=== PATIENT | female | born 1950 | race Caucasian/White ===

== ENCOUNTER → 2019-05-17 07:53 | Outpatient (CLI) | payer MEDICARE, SELFPAY ==
--- NOTE | 2019-05-17 07:57 | RAD_ITS ---
STUDY: AIR-CONTRAST UPPER GI SERIES. REASON FOR EXAM: Female, 68 years old. ABDOMEN PAIN, BOWEL MOVEMENTS EVERY OTHER DAY. FEELS FOOD and quot;LAYS'' IN STOMACH. GALLBLADDER REMOVED IN 2017. FLUOROSCOPY TIME (if supplied): ( 30 seconds ) minutes/seconds. 17 images were obtained. TECHNIQUE: The patient ingested barium. Multiple images of the esophagus, stomach and duodenum were obtained. COMPARISON: None. FINDINGS: The esophagus is unremarkable. There is no evidence of mass lesion. No evidence of a gastroesophageal reflux. The stomach and duodenum are unremarkable. There is no evidence of ulceration. No mass lesion is present. RAD/Upper GI Series Only IMPRESSION: Unremarkable air contrast upper GI series. Electronically Signed: Usman Peck, at 14:12 EST , Service support ,
== END ==
PROVIDERS: PCP Registered Nurse; Referring Provider Nurse Practitioner Adult Health; Visit Provider Nurse Practitioner Adult Health
DX: R10.10 Upper abdominal pain, unspecified (principal)
CPT/HCPCS: 74246

== ENCOUNTER → 2019-07-03 | Outpatient (CLI) | payer MEDICARE, SELFPAY ==
--- NOTE | 2019-07-03 | ASPS_PTH ---
PATIENT: JAJA DESAI LOC: [facility] U#:[id number] AGE/SX: 68/F ROOM: RE07/03/[address]: Dr. Sunil Zepeda MD : 1950 BED: DIS: 07/03/2019 SPEC #: [id number] RECD: 07/03/19 16:42 STATUS: AMOL MORAIMA #: [id number] JUSTIN: 07/03/19 00:[address]: Sunil Zepeda DEPT: CYTOLOGY RECD BY: Ivan Pepe ENTERED: 07/04/19 07:33 SP TYPE: ASPIRATION OTHR DR: Ivette Lees, AUTOMATIC TOE LASTER-C Tissues: Thyroid gland, NOS Procedures: Special Stain Group II Cytology Other HEADER OPERATION: Right thyroid fine needle aspiration x2 PRE-OP DIAGNOSIS: Right thyroid nodule TISSUE SUBMITTED: Right thyroid slides x6 DIAGNOSIS CYTOLOGY Fine needle aspiration, right thyroid nodule (smears): Adequate for evaluation. Negative, consistent with benign follicular/colloid nodule. AM:thuan 07/04/19 CYTOLOGY STUDY Slides are reviewed. CYTOLOGY GROSS Received are six smears labeled with the patient's name and designated per the requisition as right thyroid. Submitted for staining. / thuan 07/04/19 TC:5 CPT: 52244 ADDENDUM ADDENDUM ADDENDUM ADDENDUM ADDENDUM ADDENDUM ADDENDUM ADDENDUM ADDENDUM ADDENDUM ADDENDUM 10/21/2019 10:31 ADDENDUM 10/21/2019 10:31 ADDENDUM 10/21/2019 10:31 ADDENDUM 10/21/2019 10:31 ADDENDUM 10/21/2019 10:31 This addendum is added to incorporate an outside pathology consultation report. The case was examined at [facility] (#[id number]) and the following diagnosis was rendered. Thyroid nodule, right, fine needle aspiration: Benign. Consistent with colloid nodule. Please see complete above mentioned consultation report in EMR
[2019-07-03 14:02] VITALS: BMI 29.5
== END | disposition home or self-care (01) ==
LOC: LABSPEC 16:51
PROVIDERS: PCP Registered Nurse; Referring Provider Surgery; Visit Provider Surgery
DX: E04.1 Nontoxic single thyroid nodule (principal)
CPT/HCPCS: 88161; 88313

== ENCOUNTER 2020-03-24 15:41 | Emergency (ER) | payer MEDICARE, SELFPAY ==
[2019-07-03 14:02] VITALS: BMI 29.5
[2020-03-24 15:42] VITALS: BP 151/75; PULSE 69; RESP 16; TEMP 35.7; O2SAT 99; BMI 29.5
--- NOTE | 2020-03-24 16:35 | ED.VIS.GEN ---
History of Present Illness Chief Complaint: Fall Narrative: Patient presents with head injury. She sustained a mechanical fall about 24 hours ago in her garage. She injured left side of her face. No loss of consciousness no vision changes, there is no neck pain or stiffness she denies any other injury including extremity injury other than slight knee contusion but she is able to ambulate and has minimal pain over her right knee. Past Medical History - Allergies and Home Meds Allergies/Adverse Reactions: Allergies ragweed pollen Allergy (Severe, Verified 03/24/20 15:42) anaphylaxis lisinopril Allergy (Intermediate, Verified 03/24/20 15:42) cough Sulfa (Sulfonamide Antibiotics) Allergy (Intermediate, Verified 03/24/20 15:42) rash/itching zinc Allergy (Verified 03/24/20 15:42) PT UNSURE OF REACTION Primary Care Physician: Ivette Lees GEOCHEMISTRY TEACHER, GEOCHEMISTRY TEACHER-C [Primary Care Provider] - Past Medical History: None - Hypertension, otherwise normal Smoking Status: Former smoker Review of Systems All systems negative except as indicated General: Denies: Chills, Fever Eyes: Denies: Visual changes - bilaterally Cardiovascular: Denies: Chest pain, Palpitations Respiratory: Denies: Dyspnea Gastrointestinal: Denies: Abdominal pain Musculoskeletal: Reports: Extremity Pain. Denies: Myalgias Skin: Reports: - - Left periorbital contusion. Denies: Rash Neurological: Reports: Headache. Denies: Weakness, Parasthesia, Numbness Hematologic: Denies: Easy bruising, Easy bleeding Allergy: Denies: Swelling of the mouth, Swelling of the tongue Physical Exam Vital Signs/Narrative: Vital Signs Temp Pulse Resp BP Pulse Ox 03/24/20 15:42 96.2 F L 69 16 151/75 H 99 General: Well nourished, Well developed Head: - - There is left supraorbital and infraorbital contusion the eye is open and she can move the eye in all directions without any pain. Eyes: Perrl, EOMI. Negative for: Pale conjunctiva ENT: Moist mucous membranes, - - no Other facial injury Cardiovascular: Regular rate, Regular rhythm Respiratory: No distress, CTA bilaterally, Chest nontender Abdomen: Soft, Nontender Back: Nontender, Normal Inspection. Negative for: Spinal tenderness Extremities: Nontender, No edema, - - Minimal tenderness for the right knee but able to move in all directions without any pain Skin: Normal color Neurological: Alert, Oriented x3, Normal Strength, Normal Sensation Psychological: Normal affect Diagnostic/Tx/Re-eval - Medical Decision Making Has a normal exam, there is no loss of consciousness, this happened about [address] is not warranted I will discharge with reassurance ED Disposition - Plan for ED Patient: Disposition: Home or Assisted Living Diagnosis: Concussion without loss of consciousness Instructions: ED Facial Contusion, ED Mechanical Fall Referrals: Ivette Lees NP, GEOCHEMISTRY TEACHER-C [Primary Care Provider] - 3-5 Days
== END 2020-03-24 17:02 | disposition home or self-care (01) ==
LOC: ED 16:54
PROVIDERS: Emergency Provider Emergency Medicine; PCP Registered Nurse
DX: S06.0X0A Concussion without loss of consciousness, initial encounter (principal); S80.01XA Contusion of right knee, initial encounter; W19.XXXA Unspecified fall, initial encounter; Y93.9 Activity, unspecified; Y92.9 Unspecified place or not applicable; I10 Essential (primary) hypertension; Z79.899 Other long term (current) drug therapy; Z87.891 Personal history of nicotine dependence
CPT/HCPCS: 99282

== ENCOUNTER → 2020-06-16 07:53 | Outpatient (CLI) | payer MEDICARE, SELFPAY ==
--- NOTE | 2020-06-16 07:55 | US_ITS ---
STUDY: THYROID ULTRASOUND REASON FOR EXAM: Female, 69 years old. Multiple thyroid nodules TECHNIQUE: Ultrasound evaluation of the thyroid was performed with real-time and static salgado-scale imaging. COMPARISON: None. FINDINGS: RIGHT LOBE: The right lobe of the thyroid gland measures 4.9 cm x 1.7 cm x 1.5 cm. There is a heterogeneous echotexture. There are 4 hypoechoic solid nodules in the right lobe of the thyroid. The largest is in the midpole and measures 1.2 cm x 0.7 cm by 0.6 cm. Intra nodular flow is seen. Biopsy is recommended. LEFT LOBE: The left lobe of the thyroid gland measures 4.4 cm x 1.3 cm x 0.8 cm. There is a heterogeneous echotexture. Multiple small hypoechoic nodules are seen. The largest is in the lower pole and is a solid nodule measuring 0.9 cm x 0.5 cm x 0.4 cm. ISTHMUS: The isthmus measures 2 mm. The regional lymph nodes are normal. US/Thyroid IMPRESSION: Heterogeneous appearance of the thyroid echotexture with the nodules in both lobes. A dominant solid nodule is seen in the right lobe of the thyroid measuring 1.2 cm x 0.7 cm x 0.6 cm. Biopsy is recommended. Electronically Signed: Usman Peck MD at 11:13 EST , Service support ,
== END ==
PROVIDERS: PCP Registered Nurse; Referring Provider Surgery; Visit Provider Surgery
DX: E04.2 Nontoxic multinodular goiter (principal); E21.3 Hyperparathyroidism, unspecified; E83.52 Hypercalcemia
CPT/HCPCS: 76536

== ENCOUNTER 2020-10-11 08:25 | Emergency (ER) | payer MEDICARE, SELFPAY ==
[2020-10-11 08:26] VITALS: BP 165/76; PULSE 90; RESP 16; TEMP 36.1; O2SAT 98; BMI 31.5
--- NOTE | 2020-10-11 08:48 | EKG12_ITS ---
Test Reason : LEFT ARM PAIN Blood Pressure : / mmHG Vent. Rate : 086 BPM Atrial Rate : 086 BPM P-R Int : 190 ms QRS Dur : 078 ms QT Int : 394 ms P-R-T Axes : 041 013 042 degrees QTc Int : 471 ms Normal sinus rhythm Normal ECG Confirmed by CESARIO YANEZ, ELOISE ([id number]), news videotape editor SHARON COSTELLO ([id number]) on 10/13/2020 8:59:50 AM Referred By: ANA CRISTINA Confirmed By:ELOISE NASSAR MD
--- NOTE | 2020-10-11 08:49 | EX.ED.UPPERE ---
HPI History of Present Illness Chief Complaint: Upper Extremity Injury Detail of Chief Complaint: Patient with left arm pain for about 2 months Informant: patient Onset/Context/Timing Current Severity: 11/24 Narrative Narrative: Patient presents with left arm pain x2 months. Patient denies any injury. Patient states that she saw a massage therapist recently for this and has not helped her pain. Patient states that at times she feels some popping in her shoulder and it hurts to move it. She has an appointment scheduled with orthopedics on November 09 but in think she could wait that long. Patient denies any chest pain or shortness of breath. She denies any fevers. [facility] Medical History (Updated 10/11/20 @ 10:[address] Iveth Pérez, DO) Acid reflux Arthritis Diabetes Hemorrhoids Hypercalcemia Hyperlipidemia Hyperparathyroidism Hypertension Lichen sclerosus Multiple thyroid nodules Vitamin D deficiency Home Medications acetaminophen 500 mg tablet 500 mg PO Q6H PRN 05/24/19 [History Last Taken Unknown] aluminum-mag hydroxide-simethicone 200 mg-200 mg-20 mg/5 mL oral susp 10 ml PO Q6H PRN 05/24/19 [History Last Taken Unknown] atorvastatin 10 mg tablet 10 mg PO DAILY 05/24/19 [History Last Taken Unknown] calcium carbonate 600 mg calcium (1,500 mg) tablet 600 mg PO BID 05/24/19 [History Last Taken Unknown] clobetasol 0.05 % topical cream 1 applic TOPICAL .prn g 05/24/19 [History Last Taken Unknown] furosemide 40 mg tablet 40 mg PO DAILY 05/24/19 [History Last Taken Unknown] ibuprofen 600 mg tablet 600 mg PO Q6H PRN 05/24/19 [History Last Taken Unknown] metformin 500 mg tablet 500 mg PO BID 05/24/19 [History Last Taken Unknown] omeprazole 20 mg capsule,delayed release 20 mg PO .prn cap 05/24/19 [History Last Taken Unknown] verapamil 180 mg 24 hr capsule,extended release 180 mg PO DAILY 05/24/19 [History Last Taken Unknown] hydrocodone-acetaminophen 1 tab PO Q4H PRN 3 Days #14 tab 10/11/20 [Rx Last Taken Unknown] Allergy/AdvReac Type Severity Reaction Status Date / Time ragweed pollen Allergy Severe anaphylaxis Verified 10/11/20 08:29 lisinopril Allergy Intermediate cough Verified 10/11/20 08:29 Sulfa (Sulfonamide Allergy Intermediate rash/itchin Verified 10/11/20 08:29 Antibiotics) g zinc Allergy PT UNSURE Verified 10/11/20 08:29 OF REACTION Family History Mother Asthma Cancer lung cancer Diabetes Hypertension Sister Glioblastoma Diabetes Kidney disease Brother Heart disease Father Heart disease Hypertension Surgical History History of bilateral breast reduction surgery History of colonoscopy (~2018) History of hysterectomy History of laparoscopic cholecystectomy Status post biopsy of thyroid gland (~06/2019) Social History Smoking Status: Former smoker alcohol intake: never substance use type: does not use ROS ROS ED Constitutional Constitutional ED: Reports systems reviewed and no addt'l complaints, except as documented; Denies body ache(s), change in weight or chills Eyes Eyes: Denies acute decrease in peripheral vision, change in vision, double vision or loss of vision ENT ENT ED: Reports none; Denies ear pain, lip swelling, loss taste/smell, neck pain, otalgia or sore throat Cardiovascular Cardiovascular: Reports none; Denies abdominal pain, chest pain with activity, leg edema, lightheadedness, palpitations, rapid heart rate or syncope Respiratory/Chest Respiratory/Chest: Reports none; Denies change in mental status, dry cough, dyspnea, hemoptysis, shortness of breath at rest or shortness of breath with exertion Gastrointestinal Gastrointestinal: Reports none; Denies abdominal pain, change in stool character, diarrhea, hematemesis, hematochezia, melena, rectal bleeding or vomiting Genitourinary Genitourinary ED: Reports none; Denies abdominal discomfort, anuria, dysuria, genital pain or polyuria Musculoskeletal Musculoskeletal: Reports none and other Details: Left arm pain ; Denies arthralgias, back pain, difficulty walking, extremity pain, muscle weakness or myalgias Integumentary Reports none; Denies abscess or rash Neurologic Neurologic: Reports none; Denies abnormal gait, confusion, focal weakness, frequent falls, headache(s), loss of vision, numbness, paresthesias, radicular pain, vertigo or weakness Psychiatric Psychiatric: Reports systems reviewed and no addt'l complaints, except as documented and none; Denies behavioral changes, confusion, difficulty concentrating, hallucinations, suicidal ideation, tactile hallucinations or visual hallucinations Endocrine Endocrinology: Denies none, cold intolerance, excessive sweating, fatigue or heat intolerance Hematologic/Lymphatic Hematologic/Lymphatic: Reports none; Denies anemia, easy bleeding or easy bruising Allergic/Immunologic Allergic/Immunologic ED: Denies as per HPI, none, lip swelling, mouth swelling, throat swelling, tongue swelling or hives EXAM Physical Exam Const Vital Signs: 10/11/20 08:26 Temperature 97.0 F L Temperature Source Temporal Pulse Rate 90 Respiratory Rate 16 Blood Pressure 165/76 H Blood Pressure Mean 105 Pulse Ox 98 Oxygen Delivery Method Room Air Positive well nourished and well developed General Appearance ED: well developed and NAD HEENT Reports TM's clear and moist mucous membranes normocephalic and atraumatic; Negative for trauma or tenderness Tympanic Membrane ED: Yes TM's clear Eyes PERRL and EOMs intact bilaterally General Eye ED: Negative for pale conjunctiva or scleral icterus Neck no lymphadenopathy, supple and no JVD General: Negative for tenderness Chest Wall inspection of chest normal and palpation of chest normal Chest: Negative for tenderness Resp normal respiratory effort and clear to auscultation bilaterally Effort and Inspection: Negative for respiratory distress or pain with movement Auscultation: Negative for rhonchi, wheezes or diminished lung sounds Cardio regular rate, regular rhythm, S1 normal heart sound, S2 normal heart sound and no murmurs Peripheral Pulses: pulses 2+ throughout GI normal to inspection, nondistended, normoactive bowel sounds, soft to palpation, non-tender, non-distended and no masses Back/Spine no CVA tenderness and no thoracic nor lumbar tenderness Extremity Extremity Narrative: Patient with tenderness palpation about the glenohumeral joint and over the area of the bicep tendon. Patient has pain with abduction past 90 degrees. No significant tenderness on back exam other than she does have some mild tenderness over the left trapezius. She is neurovascular intact distally. There is no erythema or warmth noted. General Extremety ED: Negative for edema General Extremity: Negative for edema Neuro oriented x3, CN's II-XII intact bilaterally, no sensory deficits noted and gait normal Sensorium / Orientation: awake, alert, oriented to person, oriented to place and oriented to time Motor Exam: strength 5/5 throughout and strength abnormal Psych mental status grossly normal Skin no rashes or lesions noted and no wounds MDM MDM MDM Narrative Medical decision making narrative: Patient has chronic shoulder pain. I do not feel this is a anginal equivalent but rather a musculoskeletal issue. She has an appointment with orthopedics and she is to keep that and she will call to try to get in sooner. She will be started on Ozan for pain. She is instructed to use ibuprofen as needed as an anti-inflammatory. Patient will be given a sling for comfort. Radiography Diagnostic Testin views left shoulder x-rays obtained interpreted by myself as no acute fractures or dislocations. Radiology felt there was arthrosis of the glenohumeral joint and acromioclavicular joint. EKG Initial EKG: Attestation: I personally reviewed and interpreted this EKG as follows: Comments: Sinus rhythm with ventricular rate of 86 bpm with no acute ST segment changes. Discharge Plan Triage Chief Complaint: Upper Extremity Injury ED Provider: Iveth Pérez Dx/Rx/DC Orders Clinical Impression: Chronic left shoulder pain Instructions: ED Shoulder Pain, Uncertain Cause Prescriptions: New hydrocodone-acetaminophen 5-325 mg tablet 1 tab PO Q4H PRN (Reason: pain) 3 Days Qty: 14 RF: 0 No Action atorvastatin 10 mg tablet 10 mg PO DAILY RF: 0 calcium carbonate 600 mg calcium (1,500 mg) tablet 600 mg PO BID RF: 0 furosemide 40 mg tablet 40 mg PO DAILY RF: 0 metformin 500 mg tablet 500 mg PO BID RF: 0 verapamil 180 mg capsule,ext rel. pellets 24 hr 180 mg PO DAILY RF: 0 acetaminophen [Tylenol Extra Strength] 500 mg tablet 500 mg PO Q6H PRN (Reason: Pain 1-10 Or Fever) RF: 0 ibuprofen 600 mg tablet 600 mg PO Q6H PRN (Reason: Pain 1-10 Or Fever) RF: 0 alum-mag hydroxide-simeth 200-200-20 mg/5 mL suspension 10 ml PO Q6H PRN (Reason: erflux) RF: 0 clobetasol 0.05 % cream 1 applic TOPICAL .prn RF: 0 omeprazole 20 mg capsule,delayed release(DR/EC) 20 mg PO .prn RF: 0 Primary Care Provider: Ivette Lees NP Referrals: Aaron Song MD [NON-STAFF] - 3-5 Days Haagen,Ivette BROADCAST DIRECTOR OPERATIONS, BROADCAST DIRECTOR OPERATIONS-C [Primary Care Provider] - Disposition Disposition: Home, Self Care
--- NOTE | 2020-10-11 09:00 | RAD_ITS ---
STUDY: X-RAY - LEFT SHOULDER REASON FOR EXAM: Female, 70 years old. Pain TECHNIQUE: 4 view(s) of the shoulder. COMPARISON: None. FINDINGS: There is moderate degenerative arthrosis of the glenohumeral articulation. There is degenerative arthrosis of the acromioclavicular joint without inferior osseous spur formation. Normal acromion. Normal humeral head and visualized proximal humerus. The soft tissue structures are unremarkable. Normal visualized pulmonary apex. RAD/Shoulder min 2 Views IMPRESSION: Moderate arthrosis, no demonstrated fracture or suspicious osseous lesion Electronically Signed: Ricardo Loo MD at 9:23 EDT , Service support ,
[2020-10-11 10:26] VITALS: BP 127/64; PULSE 78; RESP 16; O2SAT 95
== END 2020-10-11 10:27 | disposition home or self-care (01) ==
PROVIDERS: Emergency Provider Emergency Medicine; PCP Registered Nurse
DX: M25.512 Pain in left shoulder (principal); G89.29 Other chronic pain; I10 Essential (primary) hypertension; E11.9 Type 2 diabetes mellitus without complications; E55.9 Vitamin D deficiency, unspecified; E78.5 Hyperlipidemia, unspecified; E21.3 Hyperparathyroidism, unspecified; E04.2 Nontoxic multinodular goiter; K21.9 Gastro-esophageal reflux disease without esophagitis; Z79.84 Long term (current) use of oral hypoglycemic drugs; Z79.899 Other long term (current) drug therapy; Z87.891 Personal history of nicotine dependence
CPT/HCPCS: 73030; 93005; 99283

== ENCOUNTER → 2021-01-26 10:06 | Outpatient (CLI) | payer MEDICARE, SELFPAY ==
--- NOTE | 2021-01-26 10:45 | MRI_ITS ---
STUDY: MRI BRAIN WITH AND WITHOUT CONTRAST REASON FOR EXAM: Female, 70 years old. LEFT FACIAL PAIN, H/A. pt fell about 10 mos ago hitting left face/head TECHNIQUE: Standardized multiplanar fat and water weighted pulse sequences were obtained. 15 ML IV DOTAREM was administered for the contrast portion of the examination. COMPARISON: 01/10/2008. FINDINGS: Normal size of the ventricles and extra-axial spaces for the patient''s age. There are multiple white matter hyperintensities, distributed throughout the deep white matter tracts of the cerebral hemispheres, consistent with mild chronic white matter ischemic changes. Normal bilateral basal ganglia. Normal thalami. There is no extra-axial fluid accumulation. Normal flow voids within the major intracranial circulation suggesting patency by spin echo criteria. Normal venous enhancement. There is no enhancing intra-axial or extra-axial abnormality. There is enlargement of the sella turcica with increased CSF within the sella and flattening of the pituitary gland consistent with an empty sellar syndrome. Normal infundibular stalk, hypothalamus, and optic chiasm. Normal tectal plate and pineal gland. Normal midbrain, tim and medulla. Normal cerebellum. Normal basal cisterns. MRI/Brain W/WO Contrast IMPRESSION: No acute intracranial abnormality or masses. Mild chronic microvascular ischemic changes. Electronically Signed: Huyen Marques MD at 12:22 EDT Tel , Service support ,
[2021-01-26 10:55] LABS: CREATININE FINGERSTICK 0.6 mg/dL (0.55-1.02); EGFR FINGERSTICK > 60.0000 mL/min (>60)
== END ==
PROVIDERS: PCP Registered Nurse; Referring Provider Otolaryngology Otolaryngology/Facial Plastic Surgery; Visit Provider Otolaryngology Otolaryngology/Facial Plastic Surgery
DX: G44.009 Cluster headache syndrome, unspecified, not intractable (principal)
CPT/HCPCS: 70553; A9575

== ENCOUNTER → 2021-02-22 | Outpatient (CLI) | payer MEDICARE, SELFPAY | END | disposition home or self-care (01) | LOC: LABSPEC 02-25 08:25 | PROVIDERS: PCP Registered Nurse; Visit Provider Physician Assistant Surgical | DX: Z11.52 Encounter for screening for COVID-19 (principal) | CPT/HCPCS: 87635; U0005; U0003 ==

== ENCOUNTER 2021-06-18 07:17 | Outpatient (CLI) | payer MEDICARE, SELFPAY ==
--- NOTE | 2021-06-18 07:21 | CT_ITS ---
EXAM: CT NECK WITH INTRAVENOUS CONTRAST : 1950 CLINICAL INDICATION: SWELLING TECHNIQUE: Helically acquired images were obtained of the neck with intravenous contrast. This CT exam was performed using one or more of the following dose reduction techniques: automated exposure control, adjustment of the mA and/or kV according to patient size, and/or use of iterative reconstruction technique. This report was created using [employer] report generation technology. CONTRAST: IV 100mL Isovue-300 COMPARISON: Thyroid ultrasound June 16, 2020 FINDINGS: NASOPHARYNX: Unremarkable. SUPRAHYOID NECK: Unremarkable. Oropharynx, oral cavity, parapharyngeal space and retropharyngeal space are unremarkable. INFRAHYOID NECK: Unremarkable. The larynx, hypopharynx and supraglottis are unremarkable. SUBMANDIBULAR/PAROTID GLANDS: Unremarkable. Glands are normal in size. THYROID: Several small right thyroid nodules noted largest one measuring 6 mm in diameter. SINUSES: Mild mucosal thickening within the left maxillary sinus. BONES/JOINTS: No acute fracture. SOFT TISSUES: Unremarkable. VASCULATURE: No acute findings. LYMPH NODES: Unremarkable. No lymphadenopathy. LUNG APICES: Unremarkable as visualized. CT/Soft Tissue Neck WITH Contrast IMPRESSION: No evidence of a mass or soft tissue swelling. Individualized dose optimization techniques were used for this CT. at 0950 Reported and signed by: Damon Phillips MD Electronically Signed: Damon Phillips MD at 9:49 EST Reading Location ID and State: [facility] / [place] Tel , Service support ,
[2021-06-18 07:36] LABS: CREATININE FINGERSTICK 0.7 mg/dL (0.55-1.02); EGFR FINGERSTICK > 60.0000 mL/min (>60)
== END 2021-06-18 23:59 | disposition home or self-care (01) ==
LOC: CT 07:19
PROVIDERS: PCP Registered Nurse; Referring Provider Otolaryngology; Visit Provider Otolaryngology
DX: R22.1 Localized swelling, mass and lump, neck (principal)
CPT/HCPCS: 70491; Q9967

== ENCOUNTER → 2022-05-12 | Outpatient (CLI) | payer MEDICARE, SELFPAY | END | disposition home or self-care (01) | LOC: SL 21:49 | PROVIDERS: PCP Registered Nurse | DX: G47.33 Obstructive sleep apnea (adult) (pediatric) (principal) | CPT/HCPCS: 95811 ==